=== PATIENT | male | born 1975 | race Two or more races ===

== ENCOUNTER 2017-06-15 17:34 | Observation (INO) | payer SELFPAY ==
[2017-06-15 17:37] VITALS: BMI 28.1
--- NOTE | 2017-06-15 19:16 | C.PDOC ---
History Of Present Illness <Carlos Bhandari - Last Filed: 06/15/17 22:39> <BrettKristagian - Last Filed: 06/16/17 05:25> Parish Jamison is a 36 year old male, with a known history of alcohol intoxication , who was brought to the emergency department by EMS prior to arrival. EMS reports he was found in [place] lying on ground. Patient is well known to hold breath in order to lower pulse oximetry significantly. Previous MDs have even admitted and intubated him due to hypoxia, but his behavior is now known in the ED. Full HPI is unobtainable due to intoxication. (Thony,Carlos T) History Per: Patient History/Exam Limitations: no limitations Current Symptoms Are (Timing): Still Present <Carlos Bhandari - Last Filed: 06/15/17 22:39> <BrettKristagian - Last Filed: 06/16/17 05:25> Time Seen by Provider: 06/15/17 17:49 Chief Complaint (Nursing): Substance Abuse Past Medical History Reviewed: Historical Data, Nursing Documentation, Vital Signs Family History: States: Unknown Family Hx - Social History Hx Alcohol Use: Yes Hx Substance Use: No <Carlos Bhandari - Last Filed: 06/15/17 22:39> Vital Signs: Last Vital Signs Temp 98.4 F 06/16/17 03:50 Pulse 78 06/16/17 03:42 Resp 18 06/16/17 03:42 BP 136/88 06/16/17 03:42 Pulse Ox 99 06/16/17 04:31 Review Of Systems Except As Marked, All Systems Reviewed And Found Negative. Constitutional: Positive for: Other (Intoxicated). Negative for: Fever Respiratory: Negative for: Shortness of Breath <Carlos Bhandari - Last Filed: 06/15/17 22:39> Physical Exam <Carlos Bhandari - Last Filed: 06/15/17 22:39> <Julio West - Last Filed: 06/16/17 05:25> - Physical Exam Additional Physical Exam Comments: Constitutional: No acute distress. Alcohol on breath. Head: Normocephalic. Atraumatic. Eyes: PERRL. ENT: Moist mucous membranes. Neck: Supple. Cardiovascular: Regular rate. Radial pulse 2+ bilaterally. Chest: No tenderness. Respiratory: Clear to auscultation bilaterally. GI: Soft. Nontender. Nondistended. Back: No CVA tenderness. Musculoskeletal: No tenderness or swelling of extremities. Skin: No rash. Neurologic: Alert, no focal deficit. (Carlos Bhandari) ED Course And Treatment O2 Sat by Pulse Oximetry: 95 (RA) Pulse Ox Interpretation: Normal <Carlos Bhandari - Last Filed: 06/15/17 22:39> Pulse Ox Interpretation: Normal <Julio West - Last Filed: 06/16/17 05:25> Medical Decision Making <Carlos Bhandari - Last Filed: 06/15/17 22:39> <SaprenettaValdi - Last Filed: 06/16/17 05:25> Medical Decision Making: Initial Plan: -Monitor in room with continuous pulse oximetry and wait for sobriety. Scribe Attestation Written by Marc Manzanares acting as a scribe for Carlos Bhandari MD All medical record entries made by the Scribe were at my direction and personally dictated by me. I have reviewed the chart and agree that the record accurately reflects my personal performance of the history, physical exam, medical decision making, and the department course for this patient. I have also personally directed, reviewed, and agree with the discharge instructions and disposition. (Carlos Bhandari) ED OBSERVATION Date of observation admission: 06/15/17 Time of observation admission: 19:59 <Carlos Bhandari - Last Filed: 06/15/17 22:39> Discharge: Yes <Julio West - Last Filed: 06/16/17 05:25> - Observation admission statement Patient is being placed in observation because:: alcohol intoxication (Carlos Bhandari) - Goals of Observation Goals of observation are:: sobriety (Carlos Bhandari) - Progress Note Progress Note: 1958 Patient with significant intoxication. No acute distress. 2158 Patient sleeping, no acute distress. 2239 Will sign out to ED night team pending sobriety. (Carlos Bhandari) 06/16/17 02:24 vitals stable (Brett,Kristadi) Disposition - Disposition Disposition Time: 19:59 <Carlos Bhandari - Last Filed: 06/15/17 22:39> Counseled Patient/Family Regarding: Studies Performed, Diagnosis, Need For Followup <Julio West - Last Filed: 06/16/17 05:25> - Disposition Disposition: HOME/ ROUTINE Condition: FAIR - Clinical Impression Clinical Impression: Alcohol intoxication
[2017-06-16 03:50] VITALS: TEMP 98.4
[2017-06-16 05:38] VITALS: BP 109/69; PULSE 82; RESP 20; O2SAT 100
== END 2017-06-16 05:25 | disposition home or self-care (01) ==
LOC: C.ER 17:34 → EDBD 17:34 → C.9OBSV 19:59
PROVIDERS: ADMIT Student in an Organized Health Care Education/Training Program; ATTEND Student in an Organized Health Care Education/Training Program
DX: F10.129 Alcohol abuse with intoxication, unspecified (principal)
CPT/HCPCS: 99285; G0378; G0480

== ENCOUNTER 2017-06-18 13:37 | Emergency (ER) | payer SELFPAY ==
[2017-06-18 13:38] VITALS: BMI 28.1
[2017-06-18 13:44] VITALS: BP 121/74; PULSE 88; RESP 18; TEMP 98.1; O2SAT 99
== END 2017-06-18 13:48 | disposition left against medical advice (07) ==
LOC: C.ER 13:37
DX: Z02.89 Encounter for other administrative examinations (principal); F10.10 Alcohol abuse, uncomplicated

== ENCOUNTER 2017-08-04 20:29 | Emergency (ER) | payer SELFPAY ==
[2017-08-04 20:30] VITALS: BMI 28.1
[2017-08-04 20:35] VITALS: TEMP 98.8; O2SAT 98
[2017-08-04 21:18] VITALS: BP 124/74; PULSE 86; RESP 14
--- NOTE | 2017-08-04 23:28 | C.PDOC ---
History Of Present Illness 42 year old male brought in to ER via EMS for public intoxication. Patient has had many prior visits for the same complaint. Patient is exhibiting bizarre behavior, holding his breath until his face is red, which is typical for this pt. Has not verbalized any physical complaints at this time. Time Seen by Provider: 08/04/17 20:40 Chief Complaint (Nursing): Shortness Of Breath History Per: Patient History/Exam Limitations: no limitations Onset/Duration Of Symptoms: Hrs Current Symptoms Are (Timing): Still Present Current Respiratory Medications: None Associated Symptoms: denies: Fever, Chills Recent travel outside of the [place]: No Past Medical History Reviewed: Historical Data, Nursing Documentation, Vital Signs Vital Signs: Last Vital Signs Temp 98.8 F 08/04/17 20:31 Pulse 86 08/04/17 21:17 Resp 14 08/04/17 21:17 BP 124/74 08/04/17 21:17 Pulse Ox 98 08/04/17 23:39 - Medical History PMH: No Chronic Diseases Surgical History: No Surg Hx Family History: States: Unknown Family Hx - Social History Hx Alcohol Use: Yes Hx Substance Use: No - Immunization History Hx Tetanus Toxoid Vaccination: No Hx Influenza Vaccination: No Hx Pneumococcal Vaccination: No Review Of Systems Constitutional: Negative for: Fever, Chills Gastrointestinal: Negative for: Nausea, Vomiting, Diarrhea Psych: Positive for: Other (Bizarre behavior, holding breath) Physical Exam - Physical Exam Appears: Non-toxic, No Acute Distress, Other (ETOH on breath) Skin: Normal Color, Warm, Dry Head: Atraumatic, Normacephalic Oral Mucosa: Moist Chest: Symmetrical Cardiovascular: Rhythm Regular Respiratory: Normal Breath Sounds, No Rales, No Rhonchi, No Wheezing Gastrointestinal/Abdominal: Soft, No Tenderness Neurological/Psych: Oriented x3, Normal Speech, Normal Cognition ED Course And Treatment O2 Sat by Pulse Oximetry: 98 Reevaluation Time: 23:15 (eloped from ED fully dressed with his large rolling suitcase) Reassessment Condition: Improved Medical Decision Making Medical Decision Making: typical etoh intox eloped from ED approx 2315 Disposition Doctor Will See Patient In The: Office Counseled Patient/Family Regarding: Studies Performed, Diagnosis - Disposition Disposition: ELOPEMENT - ER ONLY Disposition Time: 23:15 Condition: GOOD Forms: [employer] (Kazakh) - Clinical Impression Clinical Impression: Alcohol abuse - Scribe Statement The provider has reviewed the documentation as recorded by the Scribe Austin Malcolm All medical record entries made by the Scribe were at my direction and personally dictated by me. I have reviewed the chart and agree that the record accurately reflects my personal performance of the history, physical exam, medical decision making, and the department course for this patient. I have also personally directed, reviewed, and agree with the discharge instructions and disposition.
== END 2017-08-04 23:30 | disposition left against medical advice (07) ==
LOC: C.ER 20:29
DX: F10.10 Alcohol abuse, uncomplicated (principal); Y90.9 Presence of alcohol in blood, level not specified